=== PATIENT | male | born 1960 | race Caucasian/White ===

== ENCOUNTER 2018-04-30 14:16 | Emergency (ER) | payer MEDICAID ==
[~2018-04-30] VITALS: Ht 167.6 cm; Wt 80.7 kg
[2018-04-30 14:26] VITALS: Ht 167.6 cm; Wt 80.7 kg
[2018-04-30 16:15] LABS: BASOPHIL % 0.6 % (0-2); PLATELET COUNT 330 x10^3mcL (130-400); RED CELL DISTRIBUTION WIDTH 13.6 % (11.5-14.5)
[2018-04-30 16:24] LABS: CALCIUM 9.6 mg/dL (8.5-10.1); CARBON DIOXIDE 27.7 mmol/L (21-32); CHLORIDE SERUM 103 mmol/L (98-107); CREATININE SERUM 0.8 mg/dL (0.7-1.3); GFR1 > 60 mL/min; GLUCOSE SERUM 92 mg/dL (74-106); SODIUM SERUM 137 mmol/L (136-145); microscopic required? NO
[2018-04-30 16:29] LABS: ALKALINE PHOSPHATASE 86 U/L (46-116); ALT/SGPT 99 U/L (16-63); AST/SGOT 31 U/L (15-37); BILIRUBIN TOTAL 0.47 mg/dL (0.20-1.00); LIPASE 142 IU/L (73-393); TOTAL PROTEIN, SERUM 7.8 g/dL (6.4-8.2)
[2018-04-30 16:33] LABS: UA SPECIFIC GRAVITY >=1.030 (1.005-1.035); urine erythrocyte NEGATIVE (NEGATIVE)
[2018-04-30 17:45] VITALS: BP 132/78
== END 2018-04-30 17:45 | disposition home or self-care (01) ==
LOC: ED 14:16
PROVIDERS: Emergency Medicine
DX: R10.13 Epigastric pain (principal); R63.0 Anorexia
CPT/HCPCS: J2405; J3010